=== PATIENT | male | born 1975 | race Caucasian/White ===

== ENCOUNTER → 2019-11-17 14:51 | Outpatient (BNVA) | payer BC, SELFPAY | PROVIDERS: Family Provider Physician Assistant Medical; PCP Physician Assistant Medical; Visit Provider Nurse Practitioner Family | DX: R53.83 Other fatigue (principal); R63.5 Abnormal weight gain; E66.9 Obesity, unspecified; Z79.899 Other long term (current) drug therapy; J30.9 Allergic rhinitis, unspecified | CPT/HCPCS: 80053; 80061; 81001; 82306; 83036; 84439; 84443; 84481; 85025 ==

== ENCOUNTER → 2019-11-18 11:51 | Outpatient (BNVA) | payer BC, SELFPAY | PROVIDERS: Family Provider Physician Assistant Medical; PCP Physician Assistant Medical; Visit Provider Nurse Practitioner Family | DX: R53.83 Other fatigue (principal); R63.5 Abnormal weight gain; E66.9 Obesity, unspecified; Z79.899 Other long term (current) drug therapy; J30.9 Allergic rhinitis, unspecified | CPT/HCPCS: 81001 ==

== ENCOUNTER → 2020-12-14 10:49 | Outpatient (BNVA) | payer BC, SELFPAY | PROVIDERS: Family Provider Physician Assistant Medical; PCP Physician Assistant Medical; Visit Provider Nurse Practitioner Family | DX: M79.671 Pain in right foot (principal) | CPT/HCPCS: 73630 ==

== ENCOUNTER 2020-12-21 14:37 | Outpatient (CLI) | payer BC, SELFPAY | END 2020-12-21 14:38 | disposition home or self-care (01) | LOC: SPT 14:37 | PROVIDERS: Family Provider Physician Assistant Medical; PCP Physician Assistant Medical; Visit Provider Podiatrist Foot & Ankle Surgery | DX: Z46.89 Encounter for fitting and adjustment of other specified devices (principal); M76.60 Achilles tendinitis, unspecified leg | CPT/HCPCS: 97760; L4361 ==

== ENCOUNTER 2021-01-09 16:31 | Outpatient (CLI) | payer BC, SELFPAY ==
--- NOTE | 2021-01-09 16:54 | MR_ITS ---
WS: [id number] MRI RIGHT ANKLE without CONTRAST. COMPARISON: None Multiplanar, multisequence imaging is performed without contrast. History: Pain There is a well-circumscribed lesion within the central talus just below the dome. On the proton dens ity sequences this is intermediate signal with lower signal in the periphery. Predominantly high sig nal on the STIR and T2 sequences with mild signal heterogeneity. There is no cortical interruption or periosteal reaction. This nodule measures 2.4 x 2.0 x 1.8 cm. There is a very small bony protuberance along the posterior superior surface of the calcaneal tuberos ity. Consistent with a very minimal Conner deformity. There is a very small amount of fluid between the bony protrusion and the Achilles tendon. No tear within the Achilles tendon at this site. At the insertion site of the Achilles tendon there is thickening of the tendon and this moderate increased s ignal. There is mild insertion site marrow edema and thickening of the tendon. Partial tear measuring 3 mm in diameter. There is no retraction of the tendon. No additional signal abnormalities. No fractures. No significant tendinopathy or ligament injury iden tified. No significant calcaneal spur. MR/MR ankle RT wo con* [id number] IMPRESSION: 1. Very minimal Conner deformity on the posterior superior calcaneus with a v [place] small amount of fluid between the calcaneus and the Achilles tendon. No ten dinopathy at this location. 2. Moderate insertion site tendinopathy with a 3 mm insertion site tear of the Achilles tendon and marrow edema. No retraction of the tendon. 3. Bone lesion within the talus measures 2.4 x 2.0 x 1.8 cm, appears nonaggres sive by MRI. Differential includes enchondroma and low grade chondrosarcoma.
== END 2021-01-09 16:32 | disposition home or self-care (01) ==
PROVIDERS: PCP Physician Assistant Medical; Visit Provider Podiatrist Foot & Ankle Surgery
DX: M79.671 Pain in right foot (principal); M89.9 Disorder of bone, unspecified; M21.6X1 Other acquired deformities of right foot
CPT/HCPCS: 73721

== ENCOUNTER 2021-01-12 11:29 | Outpatient (CLI) | payer BC, SELFPAY | END 2021-01-12 11:30 | disposition home or self-care (01) | LOC: SPT 11:30 | PROVIDERS: PCP Physician Assistant Medical; Visit Provider Podiatrist Foot & Ankle Surgery | DX: Z46.89 Encounter for fitting and adjustment of other specified devices (principal); M65.28 Calcific tendinitis, other site | CPT/HCPCS: 97760; L3332; L4397 ==

== ENCOUNTER → 2021-03-12 13:30 | Outpatient (BNVA) | payer BC, SELFPAY | PROVIDERS: PCP Physician Assistant Medical; Visit Provider Nurse Practitioner Family | DX: Z20.822 Contact with and (suspected) exposure to COVID-19 (principal); R05 Cough | CPT/HCPCS: 87635 ==

== ENCOUNTER 2022-05-09 14:50 | Outpatient (CLI) | payer BC, SELFPAY ==
--- NOTE | 2022-05-09 14:57 | XR_ITS ---
WS: [id number] XR sacrum coccyx min 2V [id number] REASON FOR EXAM: M46.28 - Osteomyelitis of vertebra, sacral and sacrococcy... FINDINGS: No fracture or other focal bone lesion. There is a deformity of the 2 distal most coccygeal segments compatible with old injury. No findings of acute fracture or dislocation of the coccyx. Sacrum is intact without focal abnormality. XR/XR sacrum coccyx min 2V [id number] IMPRESSION: No acute abnormality.
--- NOTE | 2022-05-09 14:57 | XR_ITS ---
WS: [id number] XR pelvis min 3V [id number] REASON FOR EXAM: M46.28 - Osteomyelitis of vertebra, sacral and sacrococcy... FINDINGS: There is mild widening of the pubic symphysis with marginal sclerosis, presumed chronic abnormality. Sacroiliac joints are normal. No abnormality of the iliac bones. No soft tissue abnormality. XR/XR pelvis min 3V [id number] IMPRESSION: No acute abnormality is identified.
== END 2022-05-09 14:51 | disposition home or self-care (01) ==
LOC: RAD 14:52
PROVIDERS: PCP Nurse Practitioner Family; Visit Provider Nurse Practitioner Family
DX: M46.28 Osteomyelitis of vertebra, sacral and sacrococcygeal region (principal)
CPT/HCPCS: 72190; 72220

== ENCOUNTER → 2023-04-22 15:12 | Outpatient (BNVA) | payer BC, SELFPAY | PROVIDERS: PCP Nurse Practitioner Family; Visit Provider Nurse Practitioner Family | DX: M79.601 Pain in right arm (principal); M79.673 Pain in unspecified foot; R53.83 Other fatigue; R22.9 Localized swelling, mass and lump, unspecified; M25.50 Pain in unspecified joint | CPT/HCPCS: 84439; 84443; 84481; 84550 ==

== ENCOUNTER 2023-05-05 06:41 | Outpatient (CLI) | payer BC, SELFPAY ==
--- NOTE | 2023-05-05 06:45 | US_ITS ---
WS: [id number] ULTRASOUND SOFT TISSUES RIGHT upper extremity. HISTORY: M79.601 - Pain in right arm COMPARISON: None available. TECHNIQUE: 2-D and color Doppler imaging is submitted. Ultrasound is directed to the palpable area in the posterior RIGHT upper arm. There is a hyperechoic mass measuring 1.4 x 0.5 cm. No increased vascularity. IMPRESSION: Small benign-appearing hyperechoic mass in the soft tissues of the RIGHT upper arm. Consistent with a lipoma.
== END 2023-05-05 06:42 | disposition home or self-care (01) ==
PROVIDERS: PCP Nurse Practitioner Family; Visit Provider Nurse Practitioner Family
DX: M79.601 Pain in right arm (principal)
CPT/HCPCS: 76882

== ENCOUNTER 2023-05-19 07:58 | Day surgery (SDC) | payer BC, SELFPAY ==
[2023-05-16 10:53] VITALS: BMI 32.5
[2023-05-19] VITALS (9 sets, daily range): BP systolic 115–167; BP diastolic 70–89; PULSE 55–63; RESP 16–18; TEMP 36.1–36.2; O2SAT 96–99; BMI 32.5
[2023-05-19] MEDS: sodium chloride 0.9% 1,000 ML 30 ML IV (08:22)
--- NOTE | 2023-05-19 08:38 | W.PM.OPSUD ---
Surgery/Procedure H&P Update DATE OF PROCEDURE: May 19, 2023 DATE H&P PERFORMED: 05/13/23 H&P UPDATE INFORMATION: I have reviewed H&P completed within last 30 days, I have examined patient prior to procedure and No changes to prior documentation PLANNED PROCEDURE: Operation Date: 05/19/23 09:45 Proposed Procedures p [id number] excision of subcutaneous mass of right arm(Right) - Elvis Enamorado DO
--- NOTE | 2023-05-19 09:51 | ANES.PREANE2 ---
Pre-Anesthetic Assessment Height/Weight: Height 1.75 m Weight 99.79 kg Temp Pulse Resp BP Pulse Ox O2 Del Method 97.1 F L 58 L 18 116/76 99 Room Air 05/19/23 08:15 05/19/23 08:15 05/19/23 08:15 05/19/23 08:15 05/19/23 08:15 05/19/23 08:19 Operation Date: 05/19/23 09:45 Proposed Procedures p [id number] excision of subcutaneous mass of right arm(Right) - Elvis Enamorado DO Familial anesthetic complications: none Was Beta Melissa taken within 24 hours: N/A Was Clonidine taken within 24 hours: N/A Last intake: Intake Last Liquid Date 05/18/23 Last Liquid Time 19:30 Last Solid Date 05/18/23 Last Solid Time 19:30 Social No alcohol and No tobacco Exam alert, oriented x 3, clear to auscultation bilaterally and regular rate & rhythm Airway Mallampati: Class II Dentition: full GI Gastroesophageal Reflux Disease Anesthetic Plan ASA status: 2 Anesthesia: Local Only Risk of > 500 ml blood loss (7ml/kg in children): No Medications/Allergies Home Medications Medication Instructions Recorded Confirmed Last Taken Type No Known Home Medications 04/25/23 05/19/23 Unknown History Allergies Allergy/AdvReac Type Severity Reaction Status Date / Time Penicillins Allergy Intermediate rash Verified 05/13/23 11:08 codeine Allergy ADR-Halluci Verified 05/13/23 11:08 nating Current Medications Generic Name Dose Route Start Last Admin Trade Name Freq PRN Reason Stop Dose Admin Sodium Chloride 1,000 mls @ 30 mls/hr 05/19/23 08:15 05/19/23 08:22 Sodium Chloride 0.9% IV 05/20/23 08:14 30 mls/hr .Q24H DOLLY Administration PFSH Anesthesia Medical History (Updated 05/13/23 @ 11:26 by Elvis Enamorado DO) Acute bacterial sinusitis Allergic rhinitis Burn of left ear canal Changing skin lesion Facial skin lesion GERD (gastroesophageal reflux disease) Left foot pain Right foot pain Skin lesion of back Surgical History (Updated 05/13/23 @ 11:26 by Elvis Enamorado DO) Hx of colonoscopy 2021 Family History Mother Cancer Leukemia Father Cancer bone cancer Social History Smoking and tobacco/nicotine status: never used tobacco/nicotine Second hand smoke exposure: No Alcohol intake: never Data Anesthesia Cardiac Studies: No Data to Display
[2023-05-19] MEDS: ceFAZolin 2,000 MG in sodium chloride 0.9% (plus) 50 ML 100 MG IV (09:57)
[2023-05-19] MEDS: diphenhydrAMINE 50 mg/mL SDV 1mL 12.5 MG IVP (10:12)
[2023-05-19] MEDS: lidocaine-epi 2% 20 mL INJ 10 ML INJECTION (10:13)
--- NOTE | 2023-05-19 10:15 | PM.OP ---
Operative Report Date of procedure: May 19, 2023 Pre-op diagnosis: Subcutaneous mass right arm Post-op diagnosis: same Procedure done: Excision of subcutaneous mass right arm Implants: None Specimens removed/disposition: Subcutaneous mass right arm Surgeon: Elvis Enamorado DO Anesthesia: Local Estimated blood loss (mL): 5 Complications: none apparent Brief History: This very pleasant 48-year-old gentleman who presented my office with a painful subcutaneous mass of his right arm. Excision was indicated. The risk and benefits were explained and documented. Procedure: Patient was wheeled operative room placed on the hospital bed in the supine position. The right arm was inspected prepped and draped in usual sterile fashion. A timeout was performed. All present were in agreement. 2% lidocaine with epinephrine was used to anesthetize the area over the subcutaneous mass of the right arm. A 15 blade scalpel was then used to make a 1.5 cm transverse incision on the right arm. A fatty tumor was then manually expressed. The tumor measured 1.3 cm in greatest diameter. Hemostasis was noted. Skin was closed with 3-0 Vicryl in an interrupted fashion at the dermis and 4-0 Monocryl in a running fashion at the skin. Dermabond was applied. Patient tolerated procedure well.
== END 2023-05-19 11:14 | disposition home or self-care (01) ==
PROVIDERS: PCP Nurse Practitioner Family; Visit Provider Surgery
PROC: (CPT 11402; principal; 2023-05-19 09:45)
DX: D17.21 Benign lipomatous neoplasm of skin and subcutaneous tissue of right arm (principal); K21.9 Gastro-esophageal reflux disease without esophagitis
CPT/HCPCS: 11402; 12031; 88307; J0690; J1200; J7030

== ENCOUNTER 2024-01-28 11:46 | Outpatient (CLI) | payer BC, SELFPAY ==
--- NOTE | 2024-01-28 11:52 | XR_ITS ---
WS: [id number] Exam: XR chest 2V* [id number] Date/Time of Exam: 01/28/2024 11:52 AM Reason For Exam: R05.9 - Cough, unspecified No priors. Findings: The lungs are clear and fully expanded. Costophrenic angles are sharp. No infiltrates. Bronchovascula r relief appears normal. Cardiac silhouette is unremarkable. Bony elements are intact. XR/XR chest 2V* [id number] IMPRESSION: Unremarkable chest radiograph.
== END 2024-01-28 11:47 | disposition home or self-care (01) ==
LOC: RAD 11:48
PROVIDERS: PCP Nurse Practitioner Family; Visit Provider Nurse Practitioner Family
DX: R05.9 Cough, unspecified (principal)
CPT/HCPCS: 71046

== ENCOUNTER → 2024-08-27 16:26 | Outpatient (BNVA) | payer BC, SELFPAY | PROVIDERS: PCP Nurse Practitioner Family; Visit Provider Nurse Practitioner Family | DX: J02.9 Acute pharyngitis, unspecified (principal) | CPT/HCPCS: 87880 ==

== ENCOUNTER → 2024-10-04 09:30 | Outpatient (BNVA) | payer BC, SELFPAY | PROVIDERS: PCP Nurse Practitioner Family; Visit Provider Nurse Practitioner Family | DX: I10 Essential (primary) hypertension (principal); R35.0 Frequency of micturition; E78.5 Hyperlipidemia, unspecified; R53.83 Other fatigue | CPT/HCPCS: 80053; 80061; 81000; 84443; 85025 ==

== ENCOUNTER → 2025-02-17 09:16 | Outpatient (BNVA) | payer BC, SELFPAY | PROVIDERS: PCP Nurse Practitioner Family; Visit Provider Nurse Practitioner Family | DX: Z12.5 Encounter for screening for malignant neoplasm of prostate (principal); R39.9 Unspecified symptoms and signs involving the genitourinary system | CPT/HCPCS: 81000; G0103 ==

== ENCOUNTER 2025-04-08 13:18 | Outpatient (CLI) | payer BC, SELFPAY ==
--- NOTE | 2025-04-08 14:00 | US_ITS ---
WS: [id number] TESTICULAR ULTRASOUND HISTORY: N45.1 - Epididymitis COMPARISON: None available. TECHNIQUE: Real-time and color Doppler imaging utilized to perform a testicular ultrasound. Right testicle: 3.9 cm x 2.2 cm x 1.9 cm. Normal size and echogenicity. No mass or torsion. Normal color Doppler is present throughout. Systolic and diastolic velocities are both present. Small complex hydrocele. Right epididymis: Normal epididymis with no increased vascularity. Left testicle: 3.9 cm x 2.3 cm x 2.1 cm. Normal size and echogenicity. No mass or torsion. Normal color Doppler is present throughout. Systolic and diastolic velocities are both present. Small LEFT hydrocele. Left epididymis: Normal epididymis with no increased vascularity. US/US scrotum [id number] IMPRESSION: 1. Small bilateral hydroceles. 2. No ultrasound evidence for epididymitis or orchitis. 3. No testicular torsion.
== END 2025-04-08 13:19 | disposition home or self-care (01) ==
LOC: RAD 13:20
PROVIDERS: PCP Nurse Practitioner Family; Visit Provider Nurse Practitioner Family
DX: N43.3 Hydrocele, unspecified (principal)
CPT/HCPCS: 76870